=== PATIENT | female | born 1950 | race Caucasian/White ===

== ENCOUNTER 2017-12-29 14:39 | Emergency (ER) | payer OTHER ==
[2017-12-29 15:37] LABS: ADD MAN DIFF? NO
[2017-12-29 15:39] LABS: BASO # 0.1 x10^3/uL (0.0-0.2); BASO % 1 % (0-3); EOS # 0.4 x10^3/uL (0.0-0.7); EOS % 3 % (0-3); HEMATOCRIT 39.5 % (36.0-47.0); HEMOGLOBIN 13.4 g/dL (12.0-15.5); LYMPH # 2.7 x10^3/uL (1.0-4.8); LYMPH % 20 % (24-48); MEAN CORPUSCULAR HEMOGLOBIN 32 pg (25-35); MEAN CORPUSCULAR HGB CONC 34 g/dL (31-37); MEAN CORPUSCULAR VOLUME 96 fL (79-100); MONO % 7 % (0-9); NEUT # 9.4 x10^3uL (1.8-7.7); NEUT % 69 % (31-73); PLATELET COUNT 285 x10^3/uL (140-400); RED BLOOD COUNT 4.12 x10^6/uL (3.50-5.40); WHITE BLOOD COUNT 13.7 x10^3/uL (4.0-11.0)
[2017-12-29] MEDS: MORPHINE SULFATE 4 MG/ML DISP.SYRIN. IV ×2 (15:42→17:19)
[2017-12-29] MEDS: IV NORMAL SALINE 500ML BAG 500 ML IV (15:42)
[2017-12-29] MEDS: ONDANSETRON PF 4 MG/2 ML VIAL. IV (15:42)
[2017-12-29 15:49] LABS: ANION GAP 5 (6-14); BLOOD UREA NITROGEN 21 mg/dL (7-20); CALCIUM 8.9 mg/dL (8.5-10.1); CARBON DIOXIDE 32 mmol/L (21-32); CHLORIDE 105 mmol/L (98-107); CREATININE 0.9 mg/dL (0.6-1.0); GFR 62.6; GLUCOSE 86 mg/dL (70-99); SODIUM 142 mmol/L (136-145)
[2017-12-29] MEDS: IOHEXOL 300 MG/ML 100ML VIAL. IV (16:42)
[2017-12-29] MEDS ORDERED: CONTRAST GIVEN. MC (16:45)
== END 2017-12-29 18:35 | disposition home or self-care (01) ==
LOC: ER 14:39
DX: S00.83XA Contusion of other part of head, initial encounter (principal); G89.18 Other acute postprocedural pain; G89.29 Other chronic pain; M54.9 Dorsalgia, unspecified; Z88.2 Allergy status to sulfonamides; X58.XXXA Exposure to other specified factors, initial encounter; Y93.89 Activity, other specified; Y99.8 Other external cause status; Y92.89 Other specified places as the place of occurrence of the external cause
CPT/HCPCS: 36415; 70450; 70491; 80048; 85025; 96374; 96375; 96376; 99285-25; J2270; J2405; J7040; Q9967

== ENCOUNTER 2018-01-05 11:59 | Emergency (ER) | payer OTHER ==
[2018-01-05 12:42] LABS: ADD MAN DIFF? NO
[2018-01-05 12:47] LABS: BASO # 0.1 x10^3/uL (0.0-0.2); BASO % 1 % (0-3); EOS # 0.9 x10^3/uL (0.0-0.7); EOS % 10 % (0-3); HEMATOCRIT 37.7 % (36.0-47.0); HEMOGLOBIN 13.1 g/dL (12.0-15.5); LYMPH # 1.6 x10^3/uL (1.0-4.8); LYMPH % 19 % (24-48); MEAN CORPUSCULAR HEMOGLOBIN 33 pg (25-35); MEAN CORPUSCULAR HGB CONC 35 g/dL (31-37); MEAN CORPUSCULAR VOLUME 95 fL (79-100); MONO % 12 % (0-9); NEUT % 58 % (31-73); PLATELET COUNT 297 x10^3/uL (140-400); RED BLOOD COUNT 3.98 x10^6/uL (3.50-5.40); RED CELL DISTRIBUTION WIDTH 12.5 % (11.5-14.5); WHITE BLOOD COUNT 8.6 x10^3/uL (4.0-11.0)
[2018-01-05 12:55] LABS: ANION GAP 8 (6-14); BLOOD UREA NITROGEN 17 mg/dL (7-20); BUN/CREATININE RATIO 21 (6-20); CALCIUM 9.1 mg/dL (8.5-10.1); CARBON DIOXIDE 27 mmol/L (21-32); CHLORIDE 104 mmol/L (98-107); CREATININE 0.8 mg/dL (0.6-1.0); GFR 71.8; GLUCOSE 90 mg/dL (70-99); POTASSIUM 3.7 mmol/L (3.5-5.1); SODIUM 139 mmol/L (136-145)
[2018-01-05] MEDS: IV NORMAL SALINE 1000ML BAG 1,000 ML IV (12:58)
[2018-01-05 13:01] LABS: ALBUMIN 3.4 g/dL (3.4-5.0); ALBUMIN/GLOBULIN RATIO 0.9 (1.0-1.7); ALK PHOS 99 U/L (46-116); ALT (SGPT) 17 U/L (14-59); AST (SGOT) 17 U/L (15-37); LIPASE 82 U/L (73-393); TOTAL BILIRUBIN 0.6 mg/dL (0.2-1.0); TOTAL PROTEIN 7.3 g/dL (6.4-8.2)
[2018-01-05 13:02] LABS: TROPONINI < 0.017 ng/mL (0.000-0.055)
[2018-01-05 13:08] LABS: FREE T4 1.02 ng/dL (0.76-1.46)
[2018-01-05 13:08] LABS: THYROID STIM HORMONE (TSH) 1.255 uIU/mL (0.358-3.74)
[2018-01-05 13:56] LABS: BILIRUBIN,URINE NEGATIVE (NEG); CLARITY,URINE CLEAR; COLOR,URINE YELLOW; GLUCOSE,URINE NEGATIVE (NEG); NITRITE,URINE NEGATIVE (NEG); PROTEIN,URINE NEGATIVE (NEG-TRACE); UROBILINOGEN,URINE 0.2 mg/dL (0.2 mg/dL)
[2018-01-05 14:05] LABS: SEDIMENTATION RATE 38 (0-25)
[2018-01-05 14:06] LABS: BACTERIA,URINE 0 /HPF (0-FEW); SQUAMOUS EPITHELIAL CELL,UR FEW /LPF
== END 2018-01-05 14:20 | disposition home or self-care (01) ==
LOC: ER 11:59
DX: R51 Headache (principal); F42.4 Excoriation (skin-picking) disorder; I10 Essential (primary) hypertension; Z88.2 Allergy status to sulfonamides
CPT/HCPCS: 36415; 70450; 80053; 81001; 83605; 83690; 84439; 84443; 84484; 85025; 85651; 86140; 87040; 93005; 96361; 96374; 99285-25; J2060; J7030